=== PATIENT | male | born 1990 | race Caucasian/White ===

== ENCOUNTER 2019-09-29 22:13 | Emergency (ER) | payer MEDICAID ==
[~2019-09-29] VITALS: Ht 170.2 cm; Wt 120.2 kg
[2019-09-29 22:32] VITALS: BP_SYST 141
[2019-09-29 23:05] LABS: STREPTOCOCCUS A SCREEN (RAPID) NEGATIVE (NEGATIVE)
[2019-09-29 23:17] LABS: INFLUENZA A&B ANTIGEN SCREEN NEGATIVE FOR A & B (NEGATIVE)
[2019-09-30] MEDS ORDERED: ACETAMINOPHEN 500 MG TABLET PO ONE (02:15)
[2019-09-30 02:30] VITALS: BP_SYST 132
== END 2019-09-30 02:30 | disposition home or self-care (01) ==
LOC: SED 22:13
DX: J02.8 Acute pharyngitis due to other specified organisms (principal); B97.89 Other viral agents as the cause of diseases classified elsewhere; Z88.2 Allergy status to sulfonamides
CPT/HCPCS: 36415; 86403; 86710; 87081; 99283